=== PATIENT | male | born 2000 | race Caucasian/White ===

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

== ENCOUNTER 2020-02-28 12:00 | Emergency (ER) | payer OTHER ==
[2020-02-28 12:11] VITALS: BP 129/70
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
== END 2020-02-28 12:55 | disposition home or self-care (01) ==
LOC: ED 12:00
DX: S16.1XXA Strain of muscle, fascia and tendon at neck level, initial encounter (principal); V00-Y99 External causes of morbidity; Y93.89 Activity, other specified; Y92.524 Gas station as the place of occurrence of the external cause
CPT/HCPCS: 99282